=== PATIENT | female | born 1935 | race Two or more races ===

== ENCOUNTER 2016-11-11 08:52 | Emergency (ER) | payer OTHER ==
[2016-11-11 09:00] VITALS: TEMP 98.1
--- NOTE | 2016-11-11 09:09 | EDPHY ---
HPI/HX/ROS/PE/MDM Narrative: CHIEF COMPLAINT: "I have terrible kidney pain" HPI: This patient is an 81 y/o female with history of recurrent UTIs arriving with her daughter complaining of intermittent "kidney pain" over the last two years. This most recent episode began around Easter, one week ago. She has been evaluated several times for this by her PCP, Dr. Ruth. The patient states she was treated with amoxicillin for suspected bladder infection despite unremarkable urinalysis. She is adamant that she has kidney pain rather than bladder pain, and denies dysuria, hematuria, or vomiting. She currently complains of "sharp" left flank pain, chills, and subjective fever. She denies history of imaging for this complaint. Denies history of diabetes. REVIEW OF SYSTEMS: Aside from elements discussed in the HPI, a comprehensive 10- point review of systems was reviewed and is negative. PMH: Colon and stomach cancer, recurrent UTIs, pyelonephritis SOCIAL HISTORY: Daughter at bedside. PCP: Dr. Ruth. PHYSICAL EXAM: General:Patient is alert, in no acute distress. ENT:Eyes are normal to inspection. ENT inspection normal. Neck: Normal inspection. Full range of motion. Respiratory:No respiratory distress. Breath sounds normal bilaterally. Cardiovascular: Regular rate and rhythm. Strong peripheral pulses. Normal cap refill. Abdomen:The abdomen is nontender to palpation. There are no peritoneal signs. There are normal bowel sounds. Back: Mild left CVA tenderness, otherwise normal to inspection. No midline tenderness. Skin: Normal color. No rash. Warm and dry. Extremities: Normal appearance. Full range of motion. Neuro: Oriented x3. Normal motor function. Normal sensory function. ED Course: The patient is an 81 y/o female with history of UTIs presenting with left flank pain. She denies denies dysuria, hematuria, or vomiting. She is currently on a course of amoxicillin but has not noted relief from her symptoms. Mild CVA tenderness on exam. Plan for CT abdomen and labs including CBC, CHEM, and UA. 1L IV NS and 2mg IV Morphine administered for pain. 10:[address] Hopson reports abdominal CT unremarkable for acute findings. I discussed these results with the patient. I recommended continuing her amoxicillin and following up with urology this week. She can use Tylenol for pain. Return precautions discussed. She is comfortable with this plan. MDM: This patient presents with years of left flank pain with recent exacerbation. Per the patient, she has been repeatedly treated with antibiotics for UTI, but I see no evidence of this today. We performed an extensive workup including labs and CTabd, which are negative for signs of AAA, pyelonephritis, abdominal mass, abscess, kidney stone, or bowel obstruction. The etiology of her flank pain is unclear, but I think she is safe for outpatient management and further workup. She agrees with this plan. - Data Points Imaging: Discussed imaging studies w/ call manager Radiologist Laboratory Results: Laboratory Results 11/11/16 09:20 11/11/16 09:20 11/11/16 11/11/16 11/11/16 10:55 09:20 09:20 WBC 6.31 10^3/uL 10^3/uL (3.80-9.50) RBC 4.98 10^6/uL 10^6/uL (4.18-5.33) Hgb 14.8 g/dL g/dL (12.6-16.3) Hct 44.1 % % (38.0-47.0) MCV 88.6 fL fL (81.5-99.8) MCH 29.7 pg pg (27.9-34.1) MCHC 33.6 g/dL g/dL (32.4-36.7) RDW 13.2 % % (11.5-15.2) Plt Count 206 10^3/uL 10^3/uL (150-400) MPV 9.2 fL fL (8.7-11.7) Neut % (Auto) 75.0 % H % (39.3-74.2) Lymph % (Auto) 13.5 % L % (15.0-45.0) Trigg % (Auto) 8.1 % % (4.5-13.0) Eos % (Auto) 1.4 % % (0.6-7.6) Baso % (Auto) 1.4 % % (0.3-1.7) Nucleat RBC Rel Count 0.0 % % (0.0-0.2) Absolute Neuts (auto) 4.73 10^3/uL 10^3/uL (1.70-6.50) Absolute Lymphs (auto) 0.85 10^3/uL L 10^3/uL (1.00-3.00) Absolute Monos (auto) 0.51 10^3/uL 10^3/uL (0.30-0.80) Absolute Eos (auto) 0.09 10^3/uL 10^3/uL (0.03-0.40) Absolute Basos (auto) 0.09 10^3/uL 10^3/uL (0.02-0.10) Absolute Nucleated RBC 0.00 10^3/uL 10^3/uL (0-0.01) Immature Gran % 0.6 % % (0.0-1.1) Immature Gran # 0.04 10^3/uL 10^3/uL (0.00-0.10) Sodium 142 mEq/L mEq/L (134-144) Potassium 3.7 mEq/L mEq/L (3.5-5.2) Chloride 109 mEq/L mEq/L (97-110) Carbon Dioxide 22 mEq/l mEq/l (22-31) Anion Gap 11 mEq/L mEq/L (8-16) BUN 14 mg/dL mg/dL (7-23) Creatinine 0.6 mg/dL mg/dL (0.6-1.0) Estimated GFR > 60 Glucose 103 mg/dL H mg/dL (70-100) Calcium 9.2 mg/dL mg/dL (8.5-10.4) Urine Color PALE YELLOW Urine Appearance CLEAR Urine pH 7.0 (5.0-7.5) Ur Specific [place] 1.023 (1.002-1.030) Urine Protein NEGATIVE (NEGATIVE) Urine Ketones TRACE H (NEGATIVE) Urine Blood NEGATIVE (NEGATIVE) Urine Nitrate NEGATIVE (NEGATIVE) Urine Bilirubin NEGATIVE (NEGATIVE) Urine Urobilinogen NEGATIVE EU EU (0.2-1.0) Ur Leukocyte Esterase NEGATIVE (NEGATIVE) Ur Culture Indicated? NOT INDICATED (NI) Urine Glucose NEGATIVE (NEGATIVE) Medications Given: Discontinued Medications Sodium Chloride (Ns) 1,000 mls @ 0 mls/hr IV ONCE ONE PRN Reason: Wide Open Stop: 11/11/16 09:25 Last Admin: 11/11/16 09:24 Dose: 1,000 mls Morphine Sulfate (Morphine) 2 mg IVP EDNOW ONE Stop: 11/11/16 09:11 Last Admin: 11/11/16 09:23 Dose: 2 mg Morphine Sulfate (Morphine) 2 mg IVP EDNOW ONE Stop: 11/11/16 10:37 Last Admin: 11/11/16 10:41 Dose: 2 mg General Time Seen by Provider: 11/11/16 08:54 Initial Vital Signs: Initial Vital Signs Temperature (C) 36.7 C 11/11/16 08:52 Heart Rate 91 11/11/16 08:52 Respiratory Rate 18 11/11/16 08:52 Blood Pressure 132/73 H 11/11/16 08:52 O2 Sat (%) 97 11/11/16 08:52 O2 Delivery Mode Room Air Allergies/Adverse Reactions: Sulfa (Sulfonamide Antibiotics) Allergy (Intermediate, Verified 11/11/16 08:59) Hives Home Medications: Medication Instructions Recorded Amoxicillin Trihydrate [Amoxil 250 250 mg PO Q8 11/11/16 mg CAP (*)] Oxycodone HCl/Acetaminophen 1 each PO 11/11/16 [Oxycodone-Acetaminophen 10-325] Rivastigmine 1 each TD 11/11/16 Departure - Departure Disposition: Home, Routine, Self-Care Clinical Impression: Flank pain Condition: Good Instructions: Flank Pain (ED) Additional Instructions: 1. Continue your Amoxicillin as prescribed. 2. Take 650mg Tylenol every 6 hours as needed for pain over the next 2-3 days. 3. Follow up with urology this week. 4. Return to the ED for dramatically worsening symptoms. Referrals: ALINA RUTH [Primary Care Provider] - As per Instructions Pb Alonso MD [Medical Doctor] - As per Instructions Report Scribed for: Vargas Alston Report Scribed by: Brittany Berkowitz Date of Report: 11/11/16 Time of Report: 09:08 Physician Review and Approval Statement: Portions of this note were transcribed by an ED scribe. I personally performed the history, physical exam, and medical decision making; and confirm the accuracy of the information in the transcribed note.
[2016-11-11] MEDS ORDERED: NS 1,000 ML IV ONE (09:24)
[2016-11-11 09:37] LABS: % IMMATURE GRANULYOCYTES 0.6 % (0.0-1.1); ABSOLUTE IMMATURE GRANULOCYTES 0.04 10^3/uL (0.00-0.10); ADD DIFF? NO; ADD MORPH? NO; ADD SCAN? NO; ATYPICAL LYMPHOCYTE FLAG 0 (0-99); FRAGMENT RBC FLAG 0 (0-99); HEMATOCRIT 44.1 % (38.0-47.0); HEMOGLOBIN 14.8 g/dL (12.6-16.3); LEFT SHIFT FLG 0 (0-99); LIPEMIA HEMOLYSIS FLAG 80 (0-99); MEAN CELL HEMOGLOBIN 29.7 pg (27.9-34.1); MEAN CELL HEMOGLOBIN CONCENTR. 33.6 g/dL (32.4-36.7); MEAN CELL VOLUME 88.6 fL (81.5-99.8); MEAN PLATELET VOLUME 9.2 fL (8.7-11.7); PLATELET CLUMPS FLAG 0 (0-99); PLATELET COUNT 206 10^3/uL (150-400); RED BLOOD CELL COUNT 4.98 10^6/uL (4.18-5.33); RED CELL DISTRIBUTION WIDTH 13.2 % (11.5-15.2)
[2016-11-11 09:49] LABS: ANION GAP 11 mEq/L (8-16); CALCIUM 9.2 mg/dL (8.5-10.4); CARBON DIOXIDE 22 mEq/l (22-31); CHLORIDE 109 mEq/L (97-110); CREATININE 0.6 mg/dL (0.6-1.0); GLOMERULAR FILTRATION RATE > 60; GLUCOSE 103 mg/dL (70-100); POTASSIUM 3.7 mEq/L (3.5-5.2); SODIUM 142 mEq/L (134-144)
[2016-11-11] MEDS ORDERED: IOPAMIDOL (ISOVUE-300) 100 ML BTL IV ONE (10:07)
[2016-11-11 11:07] LABS: COLOR PALE YELLOW; LEUKOCYTE ESTERASE,URINE NEGATIVE (NEGATIVE); NITRITE,URINE NEGATIVE (NEGATIVE)
[2016-11-11 11:40] VITALS: BP 135/85; PULSE 68; RESP 16; O2SAT 96
== END 2016-11-11 11:40 | disposition home or self-care (01) ==
DX: R10.9 Unspecified abdominal pain (principal); Z85.028 Personal history of other malignant neoplasm of stomach; Z85.038 Personal history of other malignant neoplasm of large intestine
CPT/HCPCS: 74177; 96361; 96374; 96376; 99285; Q9967